=== PATIENT | female | born 1990 | race Caucasian/White ===

== ENCOUNTER 2016-10-28 23:14 | Emergency (ER) | payer MEDICAID ==
[2016-10-29 01:01] VITALS: BP 132/78
== END 2016-10-29 01:01 | disposition home or self-care (01) ==
LOC: ED 23:14
DX: O26.892 Other specified pregnancy related conditions, second trimester (principal); J32.9 Chronic sinusitis, unspecified; Z3A.16 16 weeks gestation of pregnancy